=== PATIENT | male | born 1990 | race African-American/Black ===

== ENCOUNTER 2017-05-17 11:09 | Emergency (ER) | payer OTHER ==
[~2017-05-17] VITALS: Ht 167.6 cm; Wt 75.0 kg
[~2017-05-17 11:09] MED LIST: BACTRIM,SEPT1 TABLET PO; NO HOME MEDS; NOHOMEMEDS
[2017-05-17 11:40] LABS: HEMATOCRIT 50.4 % (38.0-50.0); MCH 29.9 PG (29.0-34.0); MCHC 33.7 G/DL (30.0-36.0); MCV 88.6 FL (86-99); RBC DIS.WIDTH-SD 42.3 % (39-53); RED BLOOD COUNT 5.69 M/uL (4.00-5.50)
[2017-05-17 11:50] LABS: CHLORIDE 104 mEq/L (99-109); POTASSIUM 3.3 mEq/L (3.7-5.4); SODIUM 142 mEq/L (136-147)
[2017-05-17 11:52] LABS: GLUCOSE 162 mg/dL (70-99)
[2017-05-17 11:53] LABS: ANION GAP 17 MEQ/L (2-14)
[2017-05-17 11:54] LABS: TOTAL BILIRUBIN 0.6 mg/dL (0.0-1.0)
[2017-05-17 11:56] LABS: ALKALINE PHOSPHATASE 96 IU/L (3-129); GFR ESTIMATE (CALCULATED) > 59 mL/min/
[2017-05-17 11:57] LABS: UREA NITROGEN (BUN) 10 mg/dL (9-23)
[2017-05-17 12:28] LABS: HEMATOLOGY COMMENT 1 SN; MEAN PLAT.VOLUME 11.5 uM^3 (9.0-12.4); PLAT.SUFFICIENCY ADEQUATE; PLATELET COUNT 272 K/uL (156-360)
[2017-05-17 13:35] LABS: ADD MIUA? YES; BILIRUBIN NEGATIVE; BLOOD MODERATE; COLOR YELLOW ((YELLOW)); GLUCOSE (STRIP) 50; KETONES 5; LEUKOCYTES NEGATIVE; NITRITE NEGATIVE; PROTEIN (STRIP) NEGATIVE; SPECIFIC GRAVITY 1.013 (1.000-1.030); UROBILINOGEN 0.2 MG/DL (0.2-1.0)
[2017-05-17 13:37] LABS: BACTERIA NONE SEEN /HPF; EPITHELIAL CELLS RARE /HPF; MUCUS TRACE /LPF; RED BLOOD CELLS 40-50 /HPF (0-5); UCUL ADDED? NO; WHITE BLOOD CELLS 0-5 /HPF (0-5)
[2017-05-17] MEDS ORDERED: ZOFRAN4 MG PO (14:11)
[2017-05-17] MEDS ORDERED: FLOMAX0.4 MG PO (14:11)
[2017-05-17] MEDS ORDERED: PERCOCET 5/31 TABLET PO (14:11)
[2017-05-17 14:46] VITALS: BP 135/94
== END 2017-05-17 14:46 | disposition home or self-care (01) ==
LOC: EME 11:09
DX: N20.1 Calculus of ureter (principal); F17.200 Nicotine dependence, unspecified, uncomplicated
CPT/HCPCS: 74176; 80053; 81003; 85027; 99281; 99285; J2270; J2405; J7030